=== PATIENT | female | born 1945 | race Hispanic/Latino ===

== ENCOUNTER 2019-02-16 16:37 | Inpatient (IN) | payer MEDICARE ==
[~2019-02-16] VITALS: Ht 165.1 cm; Wt 82.1 kg
[2019-02-16 17:48] LABS: CREATININE 3.4 mg/dL (0.5-1.5); POTASSIUM 4.9 mmol/L (3.5-5.1)
[2019-02-16 17:52] LABS: ALBUMIN 3.1 g/dL (3.5-5.0); BILIRUBIN,TOTAL 0.1 mg/dL (0.2-1.0); TOTAL PROTEIN, SERUM 6.6 g/dL (6.0-8.3)
[2019-02-16 17:57] LABS: INR 0.99 (0.85-1.15); PARTIAL THROMBOPLASTIN TIME 29.9 SEC (26.3-35.5); PROTHROMBIN TIME 10.4 SEC (9.6-11.6)
[2019-02-16 18:08] LABS: BASOPHILS % (AUTO) 0.6 % (0.0-5.0); EOSINOPHILS % (AUTO) 5.5 % (0.0-8.0); HEMATOCRIT 39.2 % (36-48); LYMPHOCYTES % (AUTO) 23.6 % (21.0-51.0); MEAN CORPUSCULAR HEMOGLOBIN 27.9 pg (27.0-33.0); MEAN CORPUSCULAR HGB CONC 31.8 g/dL (32.0-36.0); MEAN CORPUSCULAR VOLUME 87.5 fL (79-99); MONOCYTES % (AUTO) 9.5 % (3.0-13.0); NEUTROPHILS % (AUTO) 60.8 % (40.0-77.0); PLATELET COUNT (AUTO) 200 K/uL (130-400); RED BLOOD CELL COUNT(AUTO) 4.48 MIL/uL (4.00-5.50); RED CELL DISTRIBUTION WIDTH 17.3 % (11.0-15.5); WHITE BLOOD COUNT (AUTO) 8.1 K/uL (4.8-10.8)
[2019-02-16 18:09] LABS: ABG BASE EXCESS -17.3 mmol/L (-2.0-3.0); ABG OXYGEN SATURATION 75.4 % (95.0-99.0); ABG PCO2 48 mmHg (32-45)
[2019-02-16] MEDS ORDERED: SODIUM CHLORIDE 0.9% 1000ML 1,000 ML IV ONE (18:52)
[2019-02-16 18:54] LABS: APPEARANCE,URINE CLOUDY (CLEAR); BILIRUBIN,URINE NEGATIVE (NEGATIVE); COLOR,URINE YELLOW (YELLOW); GLUCOSE, URINE (UA) NEGATIVE (NEGATIVE); KETONES,URINE NEGATIVE (NEGATIVE); LEUKOCYTE ESTERASE ,URINE SMALL (NEGATIVE); NITRATE,URINE NEGATIVE (NEGATIVE); OCCULT BLOOD,URINE LARGE (NEGATIVE); PH,URINE 5.5 (5.0-8.0); PROTEIN,URINE 100 mg/dL (NEGATIVE); UROBILINOGEN,URINE 0.2 mg/dL (0.2-1.0)
[2019-02-16] MEDS ORDERED: SODIUM BICARB IVP SCH (19:15)
[2019-02-16] MEDS ORDERED: WATER IVP SCH (19:15)
[2019-02-16] MEDS ORDERED: DEXTROSE 5% IVP SCH (19:15)
[2019-02-16] MEDS ORDERED: VANCOMYCIN 1GM+NS 250ML 250 ML IV ONE (19:26)
[2019-02-16] MEDS ORDERED: ZOSYN 3.375GM+NS 50ML 50 ML IV ONE (19:26)
[2019-02-16 19:30] LABS: SALICYLATE 2.8 mg/dL (2.8-20.0)
[2019-02-16] MEDS ORDERED: GLUCAGON 1MG KIT 1 MG ML IM PRN (19:45)
[2019-02-16] MEDS ORDERED: DEXTROSE 50%-WATER 50 ML DISP.SYRIN IV PRN (19:45)
[2019-02-16 19:53] LABS: BACTERIA,URINE Moderate /HPF (None Seen)
[2019-02-16 19:54] LABS: SQUAMOUS EPITHELIAL CELL,UR Rare /HPF (0-2)
[2019-02-16 20:09] LABS: HEMOGLOBIN A1C 8.6 % (4.0-6.0)
[2019-02-16] MEDS ORDERED: NITROGLYCERIN 0.4 MG SL TAB SL PRN (20:45)
[2019-02-16] MEDS ORDERED: HYDROCODONE/ACETAMINOPHEN 5/325 MG TAB PO PRN (20:45)
[2019-02-16] MEDS: SODIUM BICARB 150 MEQ in DEXTROSE 5%-WATER 1,000 ML IV SCH (20:45)
[2019-02-16] MEDS ORDERED: ONDANSETRON HCL 4 MG/2 ML VIAL IV PRN (20:45)
[2019-02-16] MEDS ORDERED: VANCOMYCIN PROTOCOL PER PHARMACY IV SCH (20:45)
[2019-02-16] MEDS ORDERED: ACETAMINOPHEN 325 MG TAB PO PRN (20:45)
[2019-02-16] MEDS: INSULIN HUMULIN R 100 UNIT/ML 3ML SQ SCH (21:00)
[2019-02-16 22:12] VITALS: BP 104/37
[2019-02-16] MEDS: FAMOTIDINE 20MG TAB 20 MG TAB PO SCH (22:17)
[2019-02-17] MEDS ORDERED: ZOSYN 3.375GM+NS 50ML 50 ML IV ONE (02:13)
[2019-02-17 03:45] LABS: HEMATOCRIT 39.4 % (36-48); MEAN CORPUSCULAR HEMOGLOBIN 28.5 pg (27.0-33.0); NUCLEATED RED BLOOD CELLS 0.5 % (0.0-0.19); PLATELET COUNT (AUTO) 164 K/uL (130-400); RED BLOOD CELL COUNT(AUTO) 4.43 MIL/uL (4.00-5.50); RED CELL DISTRIBUTION WIDTH 17.2 % (11.0-15.5); WHITE BLOOD COUNT (AUTO) 7.4 K/uL (4.8-10.8)
[2019-02-17] MEDS ORDERED: ZOSYN 3.375GM+NS 50ML 50 ML IV SCH ×2 (04:00→13:00)
[2019-02-17 04:17] LABS: ALBUMIN 2.9 g/dL (3.5-5.0); BILIRUBIN,TOTAL 0.1 mg/dL (0.2-1.0); CREATININE 3.4 mg/dL (0.5-1.5); POTASSIUM 4.6 mmol/L (3.5-5.1); TOTAL PROTEIN, SERUM 6.3 g/dL (6.0-8.3)
[2019-02-17 04:33] VITALS: BP 116/64
[2019-02-17 05:17] LABS: ABG BASE EXCESS -17.6 mmol/L (-2.0-3.0); ABG OXYGEN SATURATION 86.5 % (95.0-99.0); ABG PCO2 49 mmHg (32-45)
[2019-02-17] MEDS: INSULIN HUMULIN R 100 UNIT/ML 3ML SQ SCH ×4 (06:21→21:27)
[2019-02-17 07:00] VITALS: BP 107/48
[2019-02-17] MEDS ORDERED: PANT40TA25 PO (07:38)
[2019-02-17] MEDS ORDERED: AMLO5TAB9 PO (07:38)
[2019-02-17] MEDS ORDERED: FOLI1TAB15 PO (07:38)
[2019-02-17] MEDS ORDERED: METO-408 PO (07:38)
[2019-02-17] MEDS ORDERED: POTA10CA44 PO (07:38)
[2019-02-17] MEDS ORDERED: GABA-531 PO (07:38)
[2019-02-17] MEDS ORDERED: ATOR40TA69 PO (07:38)
[2019-02-17] MEDS ORDERED: GABA-529 PO (07:38)
[2019-02-17] MEDS ORDERED: FERR325T22 PO (07:38)
[2019-02-17 11:00] VITALS: BP 145/74
[2019-02-17] MEDS ORDERED: ENOXAPARIN SODIUM 30 MG/0.3 ML SQ ONE (12:46)
[2019-02-17] MEDS: FAMOTIDINE 20MG TAB 20 MG TAB PO SCH ×2 (12:48→20:03)
[2019-02-17] MEDS: ENOXAPARIN SODIUM 30 MG/0.3 ML SQ SCH (12:49)
[2019-02-17] MEDS: SODIUM BICARB 150 MEQ in DEXTROSE 5%-WATER 1,000 ML IV SCH (12:56)
[2019-02-17] MEDS ORDERED: SODIUM BICARBONATE 650 MG TAB PO SCH (13:20)
--- NOTE | 2019-02-17 13:27 | NUR ---
DC PLAN VISITED WITH PATIENT. PATIENT LIVES ALONE. INDEPENDENT ABLE TO PERFORM ADL'S. PATIENT HAS 24 HRS CARE. SPOUSE RECENTLY . PATIENT HAS WALKER. PENDING DR. SARABIA. Addendum: 02/17/19 at 1329 by ASTRID CORNEJO RN CM Amended: Links added.
[2019-02-17 16:00] VITALS: BP 114/49
[2019-02-17] MEDS: ZOSYN 3.375GM+NS 50ML 50 ML IV SCH (20:03)
[2019-02-17] MEDS: SODIUM BICARBONATE 650 MG TAB PO SCH (20:04)
[2019-02-17 20:09] VITALS: BP 139/79
[2019-02-17] MEDS: HYDROCODONE/ACETAMINOPHEN 5/325 MG TAB PO PRN (20:15)
[2019-02-18] VITALS (27 sets, daily range): BP systolic 70–192; BP diastolic 35–110
--- NOTE | 2019-02-18 | NUR ---
Pt. kept NPO at this time, private caregiver instructed that pt is NPO and demonstrated understanding.
[2019-02-18] MEDS: SODIUM BICARB 150 MEQ in DEXTROSE 5%-WATER 1,000 ML IV SCH ×2 (03:25→08:12)
[2019-02-18 03:40] LABS: HEMATOCRIT 36.4 % (36-48); MEAN CORPUSCULAR HEMOGLOBIN 28.2 pg (27.0-33.0); MEAN CORPUSCULAR HGB CONC 32.3 g/dL (32.0-36.0); MEAN CORPUSCULAR VOLUME 87.1 fL (79-99); NUCLEATED RED BLOOD CELLS 0.7 % (0.0-0.19); PLATELET COUNT (AUTO) 149 K/uL (130-400); RED BLOOD CELL COUNT(AUTO) 4.18 MIL/uL (4.00-5.50); RED CELL DISTRIBUTION WIDTH 17.2 % (11.0-15.5); WHITE BLOOD COUNT (AUTO) 8.1 K/uL (4.8-10.8)
[2019-02-18 03:51] LABS: CREATININE 3.6 mg/dL (0.5-1.5); PHOSPHORUS 5.2 mg/dL (2.5-4.9); POTASSIUM 4.4 mmol/L (3.5-5.1)
[2019-02-18 04:14] LABS: BASOPHILS % (MANUAL) 1 % (0-2); EOSINOPHILS % (MANUAL) 4 % (1-6); LYMPHOCYTES % (MANUAL) 23 % (22-44); MAN.DIFF COMMENT-IMPRESSION MANUAL DIFFERENTIAL; MONOCYTES % (MANUAL) 10 % (2-9); SEGMENTED NEUTROPHILS % 62 % (40-70)
[2019-02-18] MEDS: INSULIN HUMULIN R 100 UNIT/ML 3ML SQ SCH ×4 (05:59→21:00)
--- NOTE | 2019-02-18 07:34 | NUR ---
TELEPHONE CONSENT OBTAINED FROM SON WITNESSED AND VERIFIED WITH ANOTHER RN DAMASO JONES.PT. REAMINED STABLE,ON NPO.BEDSIDE REPORT GIVEN.
--- NOTE | 2019-02-18 08:00 | NUR ---
AM ASSESSMENT PT LAYING IN BED, RESTING. PROVIDER @ BEDSIDE. ORIENTED TO SELF. FORGETFUL. FOLLOWS COMMANDS. NO SOB. NO DISTRESS NOTED. 02 NC @ 3L. NO CHEST PAIN, NO DISCOMFORT. TELE: SR 60s. NO N/V. N/ DIARRHEA. ROUND DISTENDED ABD; MD TO BE NOTIFIED. NPO STATUS REINFORCED. OLIGURIA. NaHCO3 INFUSING @ 75 ML/HR. BEDREST. INSTRUCTED TO CALL FOR ASSISTANCE. CALL EMIR W/IN REACH.
[2019-02-18] MEDS: ZOSYN 3.375GM+NS 50ML 50 ML IV SCH ×2 (08:12→20:47)
[2019-02-18] MEDS: FAMOTIDINE 20MG TAB 20 MG TAB PO SCH ×2 (09:00→20:46)
[2019-02-18] MEDS: ENOXAPARIN SODIUM 30 MG/0.3 ML SQ SCH (09:00)
[2019-02-18] MEDS: SODIUM BICARBONATE 650 MG TAB PO SCH ×2 (09:00→20:46)
[2019-02-18] MEDS ORDERED: SODIUM CHLORIDE 0.9% 1000ML 1,000 ML IV ONE (10:34)
--- NOTE | 2019-02-18 10:35 | NUR ---
STATUS PT TAKEN TO HOLDING AREA VIA BED, ACCOMPANIED BY FAMILY. PT TO HAVE LT BREAST ABSCESS I & D.
--- NOTE | 2019-02-18 10:40 | NUR ---
MD VISIT DR SIGIFREDO LUU. UPDATED ON PT'S STATUS & PLAN OF CARE REVIEWED. NEW ORDERS RECEIVED. NURSE & HOLDING AREA NOTIFIED OF NEW ORDERS.
[2019-02-18] MEDS ORDERED: LIDOCAINE PF 2% 5ML ABBOJECT ONE (11:15)
[2019-02-18 11:16] LABS: ABG BASE EXCESS -12.1 mmol/L (-2.0-3.0); ABG HCO3 18.3 mmol/L (21.0-28.0); ABG PCO2 63 mmHg (32-45)
[2019-02-18] MEDS ORDERED: PROPOFOL 10 MG/ML 20ML VIAL IV ONE (11:16)
[2019-02-18] MEDS ORDERED: ROCURONIUM 10MG/1ML SYR 10 MG/ML ML ONE (11:30)
[2019-02-18] MEDS ORDERED: SUCCINYLCHOLINE 200MG/10ML SYR ONE (11:30)
[2019-02-18] MEDS ORDERED: GLYCOPYRROLATE 1 MG/5 ML SYRINGE ONE (11:46)
[2019-02-18] MEDS ORDERED: ONDANSETRON HCL 4 MG/2 ML VIAL IVP PRN (12:00)
[2019-02-18] MEDS ORDERED: MIDAZOLAM HCL 1 MG/ML 2ML VIAL ONE (12:07)
--- NOTE | 2019-02-18 12:10 | NUR ---
RECEIVED PT FROM OR VIA BED AND VENTED. S/P I&D OF RIGHT BREAST CYST. PLACED ON SCIENCE JOB TITLES. ZEROED IN LEFT RADIAL ARTERIAL LINE. REPOSITIONED FOR COMFORT. COMPLETE ASSESSMENT DOCUMENTED.
[2019-02-18] MEDS ORDERED: PROPOFOL 1000 MG/100 ML IV SCH (13:45)
[2019-02-18] MEDS ORDERED: NOREPINEPHRINE 4MG/NS 250ML 250 ML IV SCH (13:45)
--- NOTE | 2019-02-18 13:45 | NUR ---
Anna FRIEDMAN NP IN TO SEE PATIENT, UPDATE GIVEN.
[2019-02-18] MEDS: SODIUM CHLORIDE 0.9% 1000ML 1,000 ML IV SCH (13:48)
[2019-02-18] MEDS ORDERED: PROPOFOL 1000 MG/100 ML 100 ML IV PRN (16:00)
[2019-02-18] MEDS ORDERED: VANCOMYCIN 1GM+NS 250ML 250 ML IV SCH (19:00)
[2019-02-19] VITALS (37 sets, daily range): BP systolic 91–179; BP diastolic 40–106
[2019-02-19] MEDS: SODIUM CHLORIDE 0.9% 1000ML 1,000 ML IV SCH (01:17)
[2019-02-19 03:38] LABS: ABG BASE EXCESS -1.6 mmol/L (-2.0-3.0); ABG OXYGEN SATURATION 98.6 % (95.0-99.0); ABG PCO2 23 mmHg (32-45)
[2019-02-19 04:01] LABS: HEMATOCRIT 31.8 % (36-48); MEAN CORPUSCULAR HGB CONC 34.7 g/dL (32.0-36.0); MEAN CORPUSCULAR VOLUME 83.6 fL (79-99); NUCLEATED RED BLOOD CELLS 0.8 % (0.0-0.19); PLATELET COUNT (AUTO) 109 K/uL (130-400); RED BLOOD CELL COUNT(AUTO) 3.81 MIL/uL (4.00-5.50); RED CELL DISTRIBUTION WIDTH 16.3 % (11.0-15.5); WHITE BLOOD COUNT (AUTO) 5.8 K/uL (4.8-10.8)
[2019-02-19 04:08] LABS: CREATININE 3.5 mg/dL (0.5-1.5); PHOSPHORUS 2.8 mg/dL (2.5-4.9)
[2019-02-19 04:10] LABS: POTASSIUM 2.9 mmol/L (3.5-5.1)
[2019-02-19 04:27] LABS: BAND NEUTROPHILS % (MANUAL) 1 % (0-2); EOSINOPHILS % (MANUAL) 1 % (1-6); LYMPHOCYTES % (MANUAL) 31 % (22-44); MAN.DIFF COMMENT-IMPRESSION MANUAL DIFFERENTIAL; MONOCYTES % (MANUAL) 4 % (2-9); SEGMENTED NEUTROPHILS % 63 % (40-70)
[2019-02-19] MEDS: POTASSIUM CHLORIDE 20 MEQ/100 ML BAG IV SCH (05:00)
[2019-02-19] MEDS ORDERED: POTASSIUM CHLORIDE 20MEQ/100ML 100 ML IV ONE (05:01)
[2019-02-19] MEDS: SODIUM BICARB 150 MEQ in DEXTROSE 5%-WATER 1,000 ML IV SCH ×2 (05:07→21:25)
[2019-02-19] MEDS: INSULIN HUMULIN R 100 UNIT/ML 3ML SQ SCH ×4 (07:27→20:52)
[2019-02-19] MEDS: ZOSYN 3.375GM+NS 50ML 50 ML IV SCH ×2 (08:43→20:12)
[2019-02-19] MEDS: HYDRALAZINE HCL 20 MG/ML VIAL IV PRN (08:58)
[2019-02-19] MEDS ORDERED: POTASSIUM CHLORIDE 10MEQ/100ML 10 MEQ/100 ML ML IV SCH (09:00)
[2019-02-19] MEDS: SODIUM BICARBONATE 650 MG TAB PO SCH ×2 (09:00→20:08)
[2019-02-19] MEDS ORDERED: POTASSIUM CHLORIDE 20MEQ/100ML 100 ML IV SCH (09:00)
[2019-02-19] MEDS: FAMOTIDINE 20MG TAB 20 MG TAB PO SCH ×2 (09:00→20:08)
[2019-02-19] MEDS ORDERED: NICARDIPINE HCL 100 MG in SODIUM CHLORIDE 0.9% 60 ML IV PRN (09:30)
--- NOTE | 2019-02-19 12:00 | NUR ---
PATIENT EXTUBATED AND PLACED ON COOL AEROSOL MASK. NO SIGNS OF DISTRESS NOTED
[2019-02-19] MEDS: ENOXAPARIN SODIUM 30 MG/0.3 ML SQ SCH (12:21)
[2019-02-19] MEDS ORDERED: FUROSEMIDE 10 MG/ML 4ML VIAL IV SCH (15:00)
[2019-02-19] MEDS: HYDROCODONE/ACETAMINOPHEN 5/325 MG TAB PO PRN (15:52)
[2019-02-19] MEDS ORDERED: POTASSIUM CHLORIDE 20 MEQ/100 ML BAG IV SCH ×2 (16:15→19:00)
--- NOTE | 2019-02-19 22:00 | NUR ---
TRANSFER PATIENT TRANSFERRED TO ROOM 210 FROM ROOM 215 VIA BED.
[2019-02-20] VITALS (15 sets, daily range): BP systolic 98–160; BP diastolic 44–71
--- NOTE | 2019-02-20 02:45 | NUR ---
BOWEL MOVEMNT PATIENT HAD LARGE SOFT DARK GREEN BOWEL MOVEMENT. BATHED WITH CHG WIPES AND REPOSITIONED FOR COMFORT
--- NOTE | 2019-02-20 03:00 | NUR ---
PIV PERIPHERAL IV TO RIGHT HAND DISCONTINUED BY PATIENT. INSERTED NEW 22G ATTEMPT X1. SLUGGISH BLOOD RETURN. PATENT.
[2019-02-20 03:47] LABS: BASOPHILS % (AUTO) 0.6 % (0.0-5.0); EOSINOPHILS % (AUTO) 6.3 % (0.0-8.0); HEMATOCRIT 31.8 % (36-48); LYMPHOCYTES % (AUTO) 22.1 % (21.0-51.0); MEAN CORPUSCULAR HEMOGLOBIN 27.8 pg (27.0-33.0); MEAN CORPUSCULAR HGB CONC 33.2 g/dL (32.0-36.0); MEAN CORPUSCULAR VOLUME 83.9 fL (79-99); MONOCYTES % (AUTO) 12.7 % (3.0-13.0); NEUTROPHILS % (AUTO) 58.3 % (40.0-77.0); PLATELET COUNT (AUTO) 106 K/uL (130-400); RED CELL DISTRIBUTION WIDTH 17.4 % (11.0-15.5); WHITE BLOOD COUNT (AUTO) 6.7 K/uL (4.8-10.8)
[2019-02-20 03:58] LABS: CREATININE 2.9 mg/dL (0.5-1.5); MAGNESIUM 1.5 mg/dL (1.80-2.40); PHOSPHORUS 3.3 mg/dL (2.5-4.9); POTASSIUM 3.1 mmol/L (3.5-5.1)
[2019-02-20] MEDS: POTASSIUM CHLORIDE 20 MEQ/100 ML BAG IV SCH ×2 (04:51→19:42)
--- NOTE | 2019-02-20 04:56 | NUR ---
POTASSIUM/MAGNESIUM PATIENT POTASSIUM 3.1. MAGNESIUM 1.5. CALLED HOSPITALIST TRACTOR TRAILER OPERATOR TO NOTIFY OF ELECTROLYTES. PROVIDED BUN 50/CREATININE 2.9. ORDERS RECEIVED TO REPLACE PER PROTOCOL
[2019-02-20] MEDS ORDERED: POTASSIUM CHLORIDE 20 MEQ ERTAB PO PRN (05:00)
[2019-02-20] MEDS ORDERED: MAGNESIUM 2GM PREMIX 50ML 50 ML IV PRN (05:00)
[2019-02-20] MEDS ORDERED: POTASSIUM CHLORIDE 20MEQ/100ML 100 ML IV PRN (05:00)
[2019-02-20] MEDS ORDERED: LIDOCAINE HCL-MPF 1% 2ML VIAL IVP PRN (05:00)
[2019-02-20] MEDS: INSULIN HUMULIN R 100 UNIT/ML 3ML SQ SCH ×4 (06:22→22:12)
--- NOTE | 2019-02-20 08:30 | NUR ---
MD ROUNDS DR. FUENTES RIOS IN TO SEE PATIENT. NEW ORDERS RECEIVED TO BE CARRIED OUT. PER MD, PATIENT MAY TRANSFER OUT TO PCCU. INSTRUCTIONS TO COVER POTASSIUM WITH ANOTHER 20MEQ IV FOR A TOTAL OF 40 MEQ POTASSIUM.
[2019-02-20] MEDS: SODIUM BICARBONATE 650 MG TAB PO SCH ×2 (09:03→20:26)
[2019-02-20] MEDS: LEVOFLOXACIN 500 MG TABLET PO SCH (09:03)
[2019-02-20] MEDS: FAMOTIDINE 20MG TAB 20 MG TAB PO SCH ×2 (09:03→20:24)
[2019-02-20] MEDS: ENOXAPARIN SODIUM 30 MG/0.3 ML SQ SCH (09:05)
--- NOTE | 2019-02-20 12:20 | NUR ---
MD ROUNDS DR. DEL RIO IN TO SEE PATIENT. NEW ORDERS RECEIVED TO BE CARRIED OUT.
--- NOTE | 2019-02-20 13:00 | NUR ---
A-LINE TO LEFT WRIST REMOVED WITH CATHETER INTACT. NO COMPLICATIONS NOTED. PRESSURE APPLIED PER [facility] PROTOCOL. AREA DRESSED WITH 4X4 AND SECURED WITH TAPE.
--- NOTE | 2019-02-20 15:10 | NUR ---
F/C REMOVED WITHOUT COMPLICATIONS. PT IS D/T VOID BY 0.
[2019-02-20] MEDS: HYDROCODONE/ACETAMINOPHEN 5/325 MG TAB PO PRN ×2 (15:11→22:55)
--- NOTE | 2019-02-20 15:50 | NUR ---
PATIENT WITH A LARGE GREEN WATERY BM. WILL MONITOR FOR POSSIBLE DIARRHEA.
[2019-02-20] MEDS: ACETAMINOPHEN 325 MG TAB PO PRN (16:47)
[2019-02-21 02:02] VITALS: BP 152/68
[2019-02-21 03:53] VITALS: BP 154/70
[2019-02-21 04:25] LABS: MAGNESIUM 2.2 mg/dL (1.80-2.40)
[2019-02-21] MEDS: POTASSIUM CHLORIDE 10% ELIXIR 20 MEQ/15 ML UDCUP PO PRN ×2 (05:34→07:57)
[2019-02-21] MEDS: INSULIN HUMULIN R 100 UNIT/ML 3ML SQ SCH ×4 (06:08→21:00)
--- NOTE | 2019-02-21 06:09 | NUR ---
HOME MEDICATION PATIENT WAS GIVEN PINK [place] ORAL SOLUTION BY PROVIDER. INFORMED THAT PATIENT SHOULD ONLY BE TAKING PRESCRIBED MEDICATIONS AT THIS TIME. PROVIDER ACKNOWLEDGED
[2019-02-21] MEDS: SODIUM BICARBONATE 650 MG TAB PO SCH ×2 (07:57→20:32)
[2019-02-21] MEDS: FAMOTIDINE 20MG TAB 20 MG TAB PO SCH ×2 (07:57→20:32)
[2019-02-21] MEDS: ENOXAPARIN SODIUM 30 MG/0.3 ML SQ SCH (07:57)
[2019-02-21 08:13] VITALS: BP 154/81
[2019-02-21 08:31] LABS: BASOPHILS % (AUTO) 0.6 % (0.0-5.0); EOSINOPHILS % (AUTO) 10.2 % (0.0-8.0); HEMATOCRIT 35.3 % (36-48); LYMPHOCYTES % (AUTO) 19.1 % (21.0-51.0); MEAN CORPUSCULAR HEMOGLOBIN 28.1 pg (27.0-33.0); MEAN CORPUSCULAR HGB CONC 32.6 g/dL (32.0-36.0); MONOCYTES % (AUTO) 12.8 % (3.0-13.0); NEUTROPHILS % (AUTO) 57.3 % (40.0-77.0); NUCLEATED RED BLOOD CELLS 0.1 % (0.0-0.19); PLATELET COUNT (AUTO) 112 K/uL (130-400); RED BLOOD CELL COUNT(AUTO) 4.11 MIL/uL (4.00-5.50); RED CELL DISTRIBUTION WIDTH 17.5 % (11.0-15.5)
[2019-02-21 08:35] LABS: ALBUMIN 2.5 g/dL (3.5-5.0); CREATININE 2.1 mg/dL (0.5-1.5); POTASSIUM 3.4 mmol/L (3.5-5.1)
--- NOTE | 2019-02-21 10:06 | NUR ---
PHYSICAL THERAPY IN PROGRESS AT THIS TIME.
[2019-02-21 11:55] VITALS: BP 169/84
[2019-02-21 16:00] VITALS: BP 158/84
--- NOTE | 2019-02-21 17:00 | NUR ---
PATIENT RECEIVED FROM ICU NAKIA NURSE, PATIENT IN NO PAIN, LUNGS CLEAR, NO SOB, DENIES ANY DISTRESS, AAOX3. IV INTACT PATENT. PATIENT SCRATCH RIGHT FOREARM BLEEDING BAND AID APPLIED. NO OTHER DISTRESS.
[2019-02-21 20:00] VITALS: BP 175/60
[2019-02-21] MEDS: POTASSIUM CHLORIDE 20 MEQ/100 ML BAG IV SCH (20:05)
[2019-02-22] VITALS: BP 178/57
[2019-02-22 04:00] VITALS: BP 179/81
[2019-02-22 04:52] LABS: CREATININE 1.6 mg/dL (0.5-1.5); POTASSIUM 3.3 mmol/L (3.5-5.1)
[2019-02-22 04:55] LABS: BASOPHILS % (AUTO) 0.7 % (0.0-5.0); EOSINOPHILS % (AUTO) 7.8 % (0.0-8.0); LYMPHOCYTES % (AUTO) 19.7 % (21.0-51.0); MEAN CORPUSCULAR HEMOGLOBIN 27.7 pg (27.0-33.0); MEAN CORPUSCULAR HGB CONC 32.5 g/dL (32.0-36.0); MEAN CORPUSCULAR VOLUME 85.2 fL (79-99); MONOCYTES % (AUTO) 11.6 % (3.0-13.0); NEUTROPHILS % (AUTO) 60.2 % (40.0-77.0); NUCLEATED RED BLOOD CELLS 0.1 % (0.0-0.19); PLATELET COUNT (AUTO) 118 K/uL (130-400); RED BLOOD CELL COUNT(AUTO) 4.23 MIL/uL (4.00-5.50); RED CELL DISTRIBUTION WIDTH 17.6 % (11.0-15.5); WHITE BLOOD COUNT (AUTO) 6.6 K/uL (4.8-10.8)
[2019-02-22] MEDS: INSULIN HUMULIN R 100 UNIT/ML 3ML SQ SCH ×4 (07:30→21:51)
[2019-02-22] MEDS: SODIUM BICARBONATE 650 MG TAB PO SCH ×2 (09:06→21:25)
[2019-02-22] MEDS: FAMOTIDINE 20MG TAB 20 MG TAB PO SCH ×2 (09:06→21:25)
[2019-02-22] MEDS: LEVOFLOXACIN 500 MG TABLET PO SCH (09:06)
[2019-02-22] MEDS: AMLODIPINE BESYLATE 5 MG TAB PO SCH (09:06)
[2019-02-22] MEDS: ENOXAPARIN SODIUM 30 MG/0.3 ML SQ SCH (09:08)
[2019-02-22] MEDS: HYDRALAZINE HCL 20 MG/ML VIAL IV PRN (09:09)
[2019-02-22 09:29] VITALS: BP 195/98
[2019-02-22] MEDS ORDERED: NITROGLYCERIN 0.4 MG SL TAB SL PRN (10:30)
[2019-02-22 11:11] LABS: TROPONIN I 0.06 ng/mL (0.00-0.06)
[2019-02-22] MEDS: ALPRAZOLAM 0.25 MG TABLET PO PRN ×2 (11:14→21:24)
--- NOTE | 2019-02-22 11:30 | NUR ---
PATIENT COMPLAINING OF CHEST PAIN, SILK SCREEN PRINTER HELPER BEATRIZ AWARE; ORDERS ENTERED, DR BARAHONA AWARE WILL SEE PATIENT TONIGHT. ORDERS ENTERED. PATIENT REQUESTING ANXIETY MEDICATIONS WHICH WAS GIVEN AND NOW APPEARS TO BE CALM AND ASLEEP DENYING ANY CHEST PAIN. 02 SATS 94 ON 2 L.
[2019-02-22 11:58] VITALS: BP 139/57
[2019-02-22] MEDS: IPRATROPIUM 0.5 MG/2.5 ML INH IH SCH ×3 (12:02→23:15)
[2019-02-22 12:11] LABS: ABG BASE EXCESS 4.5 mmol/L (-2.0-3.0); ABG HCO3 28.7 mmol/L (21.0-28.0); ABG PCO2 41 mmHg (32-45)
[2019-02-22] MEDS: MORPHINE SULFATE 2 MG/ML 1ML SYG IVP PRN ×2 (14:30→21:39)
[2019-02-22 16:00] VITALS: BP 155/58
--- NOTE | 2019-02-22 16:01 | NUR ---
PT REFUSING VQ SCAN, AND CHEST XRAY. ZARA GUERRA.
[2019-02-22 17:06] LABS: TROPONIN I 0.06 ng/mL (0.00-0.06)
[2019-02-22 19:00] VITALS: BP 164/66
[2019-02-22] MEDS: POTASSIUM CHLORIDE 20 MEQ/100 ML BAG IV SCH (19:57)
[2019-02-22] MEDS ORDERED: GABAPENTIN 300 MG CAPSULE PO SCH (21:00)
[2019-02-22] MEDS: ATORVASTATIN CALCIUM 40 MG TABLET PO SCH (21:24)
[2019-02-22] MEDS: METOPROLOL TARTRATE 25 MG TAB PO SCH (21:25)
[2019-02-22 23:20] LABS: TROPONIN I 0.05 ng/mL (0.00-0.06)
[2019-02-23 05:50] LABS: BASOPHILS % (AUTO) 0.4 % (0.0-5.0); EOSINOPHILS % (AUTO) 8.8 % (0.0-8.0); HEMATOCRIT 34.8 % (36-48); MEAN CORPUSCULAR HEMOGLOBIN 28.5 pg (27.0-33.0); MEAN CORPUSCULAR HGB CONC 33.2 g/dL (32.0-36.0); MEAN CORPUSCULAR VOLUME 85.6 fL (79-99); MONOCYTES % (AUTO) 14.7 % (3.0-13.0); NEUTROPHILS % (AUTO) 51.1 % (40.0-77.0); NUCLEATED RED BLOOD CELLS 0.2 % (0.0-0.19); PLATELET COUNT (AUTO) 114 K/uL (130-400); RED BLOOD CELL COUNT(AUTO) 4.07 MIL/uL (4.00-5.50); WHITE BLOOD COUNT (AUTO) 5.5 K/uL (4.8-10.8)
[2019-02-23 05:59] LABS: ALBUMIN 2.4 g/dL (3.5-5.0); BILIRUBIN,TOTAL 0.4 mg/dL (0.2-1.0); CREATININE 1.3 mg/dL (0.5-1.5); MAGNESIUM 1.8 mg/dL (1.80-2.40); PHOSPHORUS 3.2 mg/dL (2.5-4.9); POTASSIUM 3.1 mmol/L (3.5-5.1); TOTAL PROTEIN, SERUM 6.3 g/dL (6.0-8.3)
[2019-02-23 06:05] LABS: INR 1.03 (0.85-1.15); PROTHROMBIN TIME 10.8 SEC (9.6-11.6)
[2019-02-23 06:11] LABS: B-TYPE NATRIURETIC PEPTIDE 1490 pg/mL (0-100)
[2019-02-23] MEDS: IPRATROPIUM 0.5 MG/2.5 ML INH IH SCH ×4 (06:35→23:10)
[2019-02-23 07:14] LABS: ABG BASE EXCESS 5.7 mmol/L (-2.0-3.0); ABG HCO3 32.3 mmol/L (21.0-28.0); ABG OXYGEN SATURATION 93.4 % (95.0-99.0); ABG PCO2 55 mmHg (32-45)
[2019-02-23] MEDS: INSULIN HUMULIN R 100 UNIT/ML 3ML SQ SCH ×4 (07:30→21:00)
[2019-02-23 08:00] VITALS: BP 174/83
[2019-02-23 08:31] LABS: APPEARANCE,URINE Clear (CLEAR); BILIRUBIN,URINE Negative (NEGATIVE); COLOR,URINE Yellow (YELLOW); GLUCOSE, URINE (UA) Negative (NEGATIVE); KETONES,URINE Trace mg/dL (NEGATIVE); LEUKOCYTE ESTERASE ,URINE Negative (NEGATIVE); NITRATE,URINE Negative (NEGATIVE); OCCULT BLOOD,URINE Small (NEGATIVE); PH,URINE 6.5 (5.0-8.0); PROTEIN,URINE 300 mg/dL (NEGATIVE); UROBILINOGEN,URINE 0.2 mg/dL (0.2-1.0)
[2019-02-23] MEDS ORDERED: POTASSIUM CHLORIDE 20 MEQ ERTAB PO SCH (09:00)
[2019-02-23] MEDS ORDERED: GABAPENTIN 100 MG CAPSULE PO SCH (09:00)
[2019-02-23 09:09] LABS: BACTERIA,URINE Few /HPF (None Seen); SQUAMOUS EPITHELIAL CELL,UR Few /HPF (0-2)
[2019-02-23] MEDS: ASPIRIN 81MG TAB.CHEW PO SCH (10:42)
[2019-02-23] MEDS: FERROUS SULFATE 325 MG TABLET.DR PO SCH (10:42)
[2019-02-23] MEDS: CHLORDIAZEPOXIDE HCL 25 MG CAP PO SCH (10:43)
[2019-02-23] MEDS: FOLIC ACID 1 MG TABLET PO SCH (10:43)
[2019-02-23] MEDS: METOPROLOL TARTRATE 25 MG TAB PO SCH ×2 (10:45→22:07)
[2019-02-23] MEDS: AMLODIPINE BESYLATE 5 MG TAB PO SCH (10:46)
[2019-02-23] MEDS: PANTOPRAZOLE SODIUM 40 MG TABLET.DR PO SCH (10:46)
[2019-02-23] MEDS: SODIUM BICARBONATE 650 MG TAB PO SCH ×2 (10:46→22:07)
[2019-02-23] MEDS: POTASSIUM CHLORIDE 10% ELIXIR 20 MEQ/15 ML UDCUP PO SCH ×3 (11:15→22:08)
[2019-02-23 11:30] VITALS: BP 176/80
--- NOTE | 2019-02-23 13:16 | NUR ---
PATIENT IS VERY LETHARGIC, ON BREATING TREATMENT WITH FAMILY PRESENT. PATIENT ABLE OPEN EYES AND FOLLOW COMMANDS FOR SHORT PERIODS OF TIME. AAROM COMPLETED WITH SEVERAL BREAKS. PATIENT NEEDS CUES TO ATTEND TO TASK. PATIENT GIVEN MEAL SET UP AND FAMILY ASSISTS WITH FEEDING. Addendum: 02/23/19 at 1318 by JUAN ELAINE, PT PT Amended: Links added.
--- NOTE | 2019-02-23 14:45 | NUR ---
Notified Dr. Cardenas pt's lethargy and being unable to do physical therapy due lethargy, as well as unable to administer 1100 dose of potassium 40 meq's. Also clarified if lovenox should be given due to today's plt of 114. Orders entered and carried out. Addendum: 02/23/19 at 1754 by REDD VERDUGO RN RN Clarification: pt is lethargic but wakes to light touch. Is able to follow very simple commands. Falls quickly asleep.
--- NOTE | 2019-02-23 15:00 | NUR ---
SNF In to speak w pt and family regarding Md order/recommendation for SNF @ dc. Pt very sleepy unable to arouse. Per son he will need to discuss w pt prior to making any determination. Provided Nura James (son) w list of local SNFs. CM to f/u.
--- NOTE | 2019-02-23 15:11 | NUR ---
Reported lethargy to Dr. Sanchez. Rec'd order to stop xanax and hold gabapentin.
[2019-02-23 16:00] VITALS: BP 141/72
[2019-02-23] MEDS: ENOXAPARIN SODIUM 30 MG/0.3 ML SQ SCH (17:02)
[2019-02-23] MEDS ORDERED: PHARMACY COMMUNICATION MISC PRN (19:15)
[2019-02-23] MEDS ORDERED: CHLORDIAZEPOXIDE HCL 25 MG CAP PO PRN (19:15)
[2019-02-23] MEDS ORDERED: LORAZEPAM 2 MG/ML 1 ML VIAL IVP PRN (19:15)
[2019-02-23] MEDS: POTASSIUM CHLORIDE 20 MEQ/100 ML BAG IV SCH (19:53)
[2019-02-23 21:34] VITALS: BP 139/70
[2019-02-23] MEDS: ATORVASTATIN CALCIUM 40 MG TABLET PO SCH (22:05)
[2019-02-23 23:00] VITALS: BP 151/97
[2019-02-24 03:00] VITALS: BP 140/78
[2019-02-24] MEDS: IPRATROPIUM 0.5 MG/2.5 ML INH IH SCH ×4 (06:29→23:18)
[2019-02-24] MEDS: INSULIN HUMULIN R 100 UNIT/ML 3ML SQ SCH ×4 (07:30→20:42)
[2019-02-24 08:00] VITALS: BP 182/84
[2019-02-24] MEDS: FOLIC ACID 1 MG TABLET PO SCH (09:14)
[2019-02-24] MEDS: SODIUM BICARBONATE 650 MG TAB PO SCH ×2 (09:17→20:39)
[2019-02-24] MEDS: METOPROLOL TARTRATE 25 MG TAB PO SCH ×2 (09:17→20:39)
[2019-02-24] MEDS: ASPIRIN 81MG TAB.CHEW PO SCH (09:17)
[2019-02-24] MEDS: PANTOPRAZOLE SODIUM 40 MG TABLET.DR PO SCH (09:17)
[2019-02-24] MEDS: ENOXAPARIN SODIUM 30 MG/0.3 ML SQ SCH (09:18)
[2019-02-24] MEDS: CHLORDIAZEPOXIDE HCL 25 MG CAP PO SCH (09:18)
[2019-02-24] MEDS: AMLODIPINE BESYLATE 5 MG TAB PO SCH (09:18)
[2019-02-24] MEDS: FERROUS SULFATE 325 MG TABLET.DR PO SCH (09:18)
--- NOTE | 2019-02-24 10:00 | NUR ---
cm note met with patient and with son Nura , informed pt of orders for snf level of care, pt states she prefers to return ye home at time of dc has 24hr cg, informed her that she is very weak, and requires further rehab than she can receive at home, and that is why Md ordered snf. pt refusing snf level of care unless she can go to home first for at least 3 days, and then go to the facililty, son discussed [facility] as a possiblity for option, and pt agreeable to going only if she can go home first, also had discussion with son Nura Jacob [phone] and Adrian groves DIRECTOR OF RECREATION THERAPY, regarding dc plan, per Adrian groves states does not feel that pt is able to make her own decisions, mental capacity in questions. states will order a psyche consult for assistance.
[2019-02-24] MEDS ORDERED: MAGNESIUM 2GM PREMIX 50ML 50 ML IV PRN (10:15)
[2019-02-24] MEDS: POTASSIUM CHLORIDE 10% ELIXIR 20 MEQ/15 ML UDCUP PO PRN (10:20)
[2019-02-24] MEDS: MAGNESIUM 2GM PREMIX 50ML 50 ML IV PRN (11:12)
[2019-02-24] MEDS: ACYCLOVIR 800 MG TABLET PO SCH ×4 (11:12→23:49)
[2019-02-24 12:00] VITALS: BP 141/94
[2019-02-24 16:00] VITALS: BP 157/84
--- NOTE | 2019-02-24 16:25 | NUR ---
Anand recd call from son Nura James [phone] to discuss dc options. Anand educated on SNF vs HH vs Hospice vs Private care homes. Son reports that pt has really fallen into a deep depression since the of her 6 months ago. Reports pt doesn't want to do anything, drinking and declining in ability to complete ADLS. Son has private duty care givers in home with pt, but is not sure if hoe is best option for pt. ANAND educated on MPOA and Surrogate Decision Maker Law, and directives. Son not sure if pt has in place and pt has never wanted to discuss wishes with her kids. Son states that pt is currently confused and not able to respond correctly. Pt also not really willing to do PT when seen. Son concerned that pt will not do PT if sent to SNF, and pt has refused SNF when she was alert and oriented. Encouraged son to try and talk to pt regarding directives and code status, and hospice and see how pt reacted to this option. Pt may be agreeable or not. Discussed going home with HH and if pt continues to decline, consider hospice at home.
--- NOTE | 2019-02-24 17:44 | NUR ---
Nutrition Intervention: Nutrition screen based on LOS x 8 days. Pt. admitted with Dx of Left breast abscess, metabolic acidosis. Pt. on Renal Non Dialysis diet. Pt. reports poor p.o. intake due to loss of appetite. Spoke with pt. regarding nutritional supplementation and pt. agreed to try. Labs reviewed(Alb 2.4, BG 187, HgbA1c 8.6%, BUN 26). LBM: 02/24/19. SR-15, left breast incision/right buttock shingles lesion. BMI: 31.6, overweight for age. Pt. refused Diabetic diet education. Recommendations: 1) Rec. 75gm CCD diet. 2) Rec. Chocolate Glucerna BID with B'fast and dinner meals. 3) Continue to monitor pt's nutritional status. 4) Consult RD as nutrition concerns arise. Addendum: 02/24/19 at [address] Amended: Links added.
[2019-02-24 19:00] VITALS: BP 157/85
[2019-02-24] MEDS ORDERED: ALPRAZOLAM 0.5 MG TABLET PO ONE (19:30)
[2019-02-24] MEDS ORDERED: ALPRAZOLAM 0.5 MG TABLET ONE (20:34)
[2019-02-24] MEDS: POTASSIUM CHLORIDE 20 MEQ ERTAB PO SCH (20:39)
[2019-02-24] MEDS: ATORVASTATIN CALCIUM 40 MG TABLET PO SCH (20:39)
--- NOTE | 2019-02-24 20:40 | NUR ---
MEDS SHIFT ASSESSMENT DONE, PLEASE REFER TO CHART. DUE MEDS ADMINISTERED, TOLERATED WELL. KEPT RESTED AND COMFORTABLE. CALL LIGHT WITHIN REACH. PRIVATE SITTER AT BEDSIDE. WILL MONITOR PT.
--- NOTE | 2019-02-24 21:15 | NUR ---
IS TRIED TO CYLINDER DYER PT TO DO IS BUT REFUSED AT THIS TIME. WILL TRY AGAIN IN AM.
[2019-02-25] VITALS (33 sets, daily range): BP systolic 93–178; BP diastolic 31–101
--- NOTE | 2019-02-25 02:00 | NUR ---
ROUNDS PT RESTING IN BED. NO DISTRESS NOTED. KEPT RESTED AND COMFORTABLE. CALL LIGHT WITHIN REACH. PRIVATE SITTER AT BEDSIDE.
[2019-02-25] MEDS: HYDRALAZINE HCL 20 MG/ML VIAL IV PRN (04:18)
--- NOTE | 2019-02-25 04:30 | NUR ---
O2 PT NOTED TO BE HAVING SHALLOW BREATHS. INSTRUCTED TO TAKE DEEP BREATHS BUT DOES NOT FOLLOW INSTRUCTIONS. TRIED TO FLEX O WRITER OPERATOR ON IS AGAIN BUT DOSE NOT FOLLOW. CHECKED O2 SAT=89%-90% ON 2LPM. INCREASED O2 AT 3LPM VIA NC. WILL MONITOR PT.
--- NOTE | 2019-02-25 05:20 | NUR ---
MEDS PT IS STILL AWAKE. ONLY SLEPT FOR SHORT INTERVALS. DUE MEDS ADMINISTERED, TOLERATED WELL. KEPT COMFORTABLE WITH HOB ELEVATED. FOR MORE CARE.
[2019-02-25] MEDS: ACYCLOVIR 800 MG TABLET PO SCH ×5 (05:23→23:00)
[2019-02-25 05:45] LABS: BASOPHILS % (AUTO) 0.6 % (0.0-5.0); EOSINOPHILS % (AUTO) 10.3 % (0.0-8.0); HEMATOCRIT 36.1 % (36-48); MEAN CORPUSCULAR HEMOGLOBIN 28.8 pg (27.0-33.0); MEAN CORPUSCULAR HGB CONC 32.9 g/dL (32.0-36.0); MEAN CORPUSCULAR VOLUME 87.6 fL (79-99); MONOCYTES % (AUTO) 9.8 % (3.0-13.0); NEUTROPHILS % (AUTO) 57.3 % (40.0-77.0); NUCLEATED RED BLOOD CELLS 0.1 % (0.0-0.19); PLATELET COUNT (AUTO) 121 K/uL (130-400); RED BLOOD CELL COUNT(AUTO) 4.13 MIL/uL (4.00-5.50); RED CELL DISTRIBUTION WIDTH 18.3 % (11.0-15.5); WHITE BLOOD COUNT (AUTO) 6.2 K/uL (4.8-10.8)
[2019-02-25 06:18] LABS: CREATININE 1.1 mg/dL (0.5-1.5); PHOSPHORUS 3.4 mg/dL (2.5-4.9); POTASSIUM 4.4 mmol/L (3.5-5.1)
[2019-02-25] MEDS: INSULIN HUMULIN R 100 UNIT/ML 3ML SQ SCH ×4 (06:22→21:00)
[2019-02-25] MEDS: IPRATROPIUM 0.5 MG/2.5 ML INH IH SCH ×4 (06:38→23:39)
--- NOTE | 2019-02-25 06:54 | NUR ---
RT RT IN TO GIVE BREATHING TREATMENT. RT INFORMS ROLL TRUCKER THAT PT IS NOT TAKING DEEP BREATHS AT THIS TIME, JUST SHALLOW BREATHS. O2 SAT IS STILL AT 90%. O2 INCREASED TO 5LPM AND O2 SATS INCREASED TO 94%.
--- NOTE | 2019-02-25 08:24 | NUR ---
Upon assessment patient in bed sleeping. Patient awaken by calling her name. IV flushing well to right arm and patent. caregiver at bedside. Addendum: 02/25/19 at 1929 by JEWELL NIELSON RN RN Pt able to follow simple commands.
[2019-02-25] MEDS: PANTOPRAZOLE SODIUM 40 MG TABLET.DR PO SCH (08:52)
[2019-02-25] MEDS: ASPIRIN 81MG TAB.CHEW PO SCH (08:52)
[2019-02-25] MEDS: FERROUS SULFATE 325 MG TABLET.DR PO SCH (08:53)
[2019-02-25] MEDS: FOLIC ACID 1 MG TABLET PO SCH (08:53)
[2019-02-25] MEDS: POTASSIUM CHLORIDE 20 MEQ ERTAB PO SCH ×2 (08:53→21:00)
[2019-02-25] MEDS: CHLORDIAZEPOXIDE HCL 25 MG CAP PO SCH (08:53)
[2019-02-25] MEDS: SODIUM BICARBONATE 650 MG TAB PO SCH ×2 (08:53→22:02)
[2019-02-25] MEDS: ENOXAPARIN SODIUM 30 MG/0.3 ML SQ SCH (08:54)
[2019-02-25] MEDS: AMLODIPINE BESYLATE 5 MG TAB PO SCH (08:54)
[2019-02-25] MEDS: METOPROLOL TARTRATE 25 MG TAB PO SCH ×2 (08:54→22:02)
--- NOTE | 2019-02-25 10:00 | NUR ---
DC PLANNING W SON/PT DC PLANNING TO SNF? MET PT, PROVIDER & SON AT BEDSIDE. PT PALE , PUFFY, AUDIBLE WHEEZING & PALE, MAKES EYE CONTACT, FLAT AFFECT, VOICE VERY SOFT, DIFFICULT TO UNDERSTAND. PATIENT ASKED AGAIN ABOUT REHAB/SNF; PT AGAIN REFUSED. APPEARED CONFUSED AND REPEATED HERSELF OVER AND OVER. PLAN FOR THORACENTESIS TODAY. PRIMARY RN GOT CONSENT FROM CONSENT 09/28/ TO PT BEING TOO CONFUSED TO GIVE INFORMED CONSENT. ASKED SON IF HOME W HOSPICE WAS AN OPTION, WAS TOLD THAT [facility] TOLD HIM THAT SHE DID NOT HAVE A HOSPICE DIAGNOSIS, BUT THAT HE CALLED [facility] AND WAS TOLD THEY WOULD ASSESS THE PATIENT IF ORDERED. Addendum: 02/26/19 at 0932 by MOHAMUD ALBRECHT RN Amended: Links added.
[2019-02-25] MEDS ORDERED: FUROSEMIDE 10 MG/ML 2ML VIAL IV SCH (10:30)
--- NOTE | 2019-02-25 10:30 | NUR ---
Susan Modi, JACKIE for [employer] rounding on patient. Notified patient tachypnea, O2 sat at 95% with 5LPM at this time. Generalized edema to extremities. Made Aware of left pleural effusion. Cg at bedside and updated on pt status. Will start patient on Furosemide at this time.
[2019-02-25] MEDS ORDERED: LIDOCAINE HCL 1% 20 ML VIAL INJ SCH (12:30)
--- NOTE | 2019-02-25 12:30 | NUR ---
Dr. Quiroz here for bedside thoracentesis to left lung. Consent signed by son due to patient confused.
--- NOTE | 2019-02-25 12:55 | NUR ---
Thoracentesis done by Dr. Quiroz. Pt tolerated well. 1.5L yellow fluid removed and taken to lab.
--- NOTE | 2019-02-25 14:01 | NUR ---
Dr. Abebe dietz. Notified patient given Xanax 0.5mg PO once last night and patient continues sleeping. DC Xanax
[2019-02-25] MEDS ORDERED: FUROSEMIDE 20 MG TABLET PO SCH (15:00)
--- NOTE | 2019-02-25 15:06 | NUR ---
Rounding on patient, patient difficult to arrouse. Arousable only to painful stimuli. Rapid response called. Dr. Cardenas, RT, Jose A Charge Nurse, attending. ABG's obtained, patient placed on BIPAP for respiratory distress. VS 154/66 62 95% respirations 24 with shallow breathing. IV started to right wrist 22 g by EDSON Naranjo. Susan Modi notified of ABG's. Recheck ABG's in 1 hour. Patient to transfer to ICU once Bed available. Will continue to monitor and assess. Addendum: 02/25/19 at 2031 by JEWELL NIELSON RN RN Susan Modi ordered for bipap settings 13/04 8 @ 40%
--- NOTE | 2019-02-25 15:09 | NUR ---
HOLD EVAL. ORDER RECEIVED. HOLD EVALUATION SECONDARY TO Pt SLEEPY AND DROWSY AT THIS TIME. Pt S/P THORACENTESIS. HANDER IN TO FOLLOW UP WITH Pt. Addendum: 02/25/19 at 1510 by CARLOS CHASE, SPT ST Amended: Links added.
[2019-02-25 15:11] LABS: ABG BASE EXCESS 4.2 mmol/L (-2.0-3.0); ABG HCO3 33.2 mmol/L (21.0-28.0); ABG OXYGEN SATURATION 98.7 % (95.0-99.0); ABG PCO2 73 mmHg (32-45)
--- NOTE | 2019-02-25 15:24 | NUR ---
Patient remains on Bipap. VS 165/101 57 20 Resp 89% O2 sat on 5LPM. Continue to monitor and assess
--- NOTE | 2019-02-25 15:39 | NUR ---
Patient remains on Bipap. VS 145/58 66 20 Resp 97% O2 sat on 5LPM. Continue to monitor and assess. Emergency contact son called for update on pt condition. Pt stated he was on his way up from elevator.
--- NOTE | 2019-02-25 15:54 | NUR ---
Patient remains on Bipap. VS 145/79 67 20 Resp 96% O2 sat on 5LPM. Continue to monitor and assess. 2 Son at bedside and informed a rapid response was called. Notified pending transfer to ICU for continued monitoring of respiratory system.
--- NOTE | 2019-02-25 16:00 | NUR ---
Patient transferred to ICU room 206 via bed and Bipap. Patient in no acute distress. Addendum: 02/25/19 at 2027 by JEWELL NIELSON RN RN ERROR wrong time
--- NOTE | 2019-02-25 16:09 | NUR ---
Patient remains on Bipap. VS 141/60 67 20 96% O2 sat on 5LPM. Continue to monitor and assess. 2 sons and a visitor remain at bedside with pt
[2019-02-25] MEDS ORDERED: NALOXONE HCL 0.4 MG/1 ML ML IVP SCH (16:15)
--- NOTE | 2019-02-25 16:24 | NUR ---
Patient transferred to ICU RM 206 accompanied by RT and Jose A, conveyor line battery charger nurse, remains on Bipap. VS 152/76 68 20 Resp 95% O2 sat. Continue to monitor and assess
[2019-02-25] MEDS: FUROSEMIDE 10 MG/ML 2ML VIAL IV SCH ×2 (18:15→21:40)
[2019-02-25 20:05] LABS: APPEARANCE BODY FLUID CLEAR (CLEAR); COLOR,BODY FLUID LT YELLOW (LT YELLOW); SPECIMENTYPE,BODY FLUID PLEURAL; TOTAL VOLUME,BODY FLUID 1580 mL
[2019-02-25 20:06] LABS: BODY FLUID RBC 300 /cu. mm.; BODY FLUID WBC 148 /cu. mm.
[2019-02-25 20:08] LABS: BF LYMPHOCYTE 68 %; BF MESOTHELIAL 10 %; BF MONOCYTE 4 %
--- NOTE | 2019-02-25 20:10 | NUR ---
TEMPERATURE PATIENT TEMPERATURE 94.3 AXILLARY. LAWANDA HUGGER APPLIED
[2019-02-25] MEDS: ATORVASTATIN CALCIUM 40 MG TABLET PO SCH (22:02)
--- NOTE | 2019-02-25 22:05 | NUR ---
MEDICATIONS PATIENT LETHARGIC ABLE TO SAY NAME AND FOLLOW COMMANDS, ABLE TO SWALLOW WATER. MEDICATIONS GIVEN PO, CRUSHED WITH APPLESAUCE
[2019-02-25] MEDS: POTASSIUM CHLORIDE 10% ELIXIR 20 MEQ/15 ML UDCUP PO PRN (22:12)
[2019-02-26] VITALS (25 sets, daily range): BP systolic 101–154; BP diastolic 42–79
[2019-02-26 03:46] LABS: BASOPHILS % (AUTO) 0.5 % (0.0-5.0); EOSINOPHILS % (AUTO) 5.6 % (0.0-8.0); HEMATOCRIT 36.9 % (36-48); LYMPHOCYTES % (AUTO) 17.2 % (21.0-51.0); MEAN CORPUSCULAR HEMOGLOBIN 28.3 pg (27.0-33.0); MEAN CORPUSCULAR HGB CONC 32.4 g/dL (32.0-36.0); MEAN CORPUSCULAR VOLUME 87.4 fL (79-99); MONOCYTES % (AUTO) 9.8 % (3.0-13.0); NEUTROPHILS % (AUTO) 66.9 % (40.0-77.0); NUCLEATED RED BLOOD CELLS 0.1 % (0.0-0.19); PLATELET COUNT (AUTO) 100 K/uL (130-400); RED BLOOD CELL COUNT(AUTO) 4.22 MIL/uL (4.00-5.50); RED CELL DISTRIBUTION WIDTH 17.8 % (11.0-15.5)
[2019-02-26 04:06] LABS: ALBUMIN 2.2 g/dL (3.5-5.0); BILIRUBIN,TOTAL 0.3 mg/dL (0.2-1.0); CREATININE 1.1 mg/dL (0.5-1.5); MAGNESIUM 1.7 mg/dL (1.80-2.40); PHOSPHORUS 3.5 mg/dL (2.5-4.9); POTASSIUM 4.6 mmol/L (3.5-5.1); TOTAL PROTEIN, SERUM 5.5 g/dL (6.0-8.3)
[2019-02-26] MEDS: MAGNESIUM 2GM PREMIX 50ML 50 ML IV PRN (04:20)
[2019-02-26 04:59] LABS: ABG BASE EXCESS 10.4 mmol/L (-2.0-3.0); ABG HCO3 36.4 mmol/L (21.0-28.0); ABG PCO2 53 mmHg (32-45)
[2019-02-26] MEDS: INSULIN HUMULIN R 100 UNIT/ML 3ML SQ SCH ×4 (06:38→20:47)
[2019-02-26] MEDS: ACYCLOVIR 800 MG TABLET PO SCH ×5 (06:38→23:03)
[2019-02-26] MEDS: IPRATROPIUM 0.5 MG/2.5 ML INH IH SCH ×3 (06:51→18:42)
--- NOTE | 2019-02-26 08:00 | NUR ---
HOLD EVAL. Pt ON CONTINUOUS BIPAP AT THIS TIME. HOLD EVALUATION SECONDARY TO POOR RESPIRATORY STATUS. FILTER PRESS PUMPER WILL CONTINUE TO FOLLOW Pt. FILTER PRESS PUMPER COORDINATED CARE WITH NURSE MIRTA. Addendum: 02/26/19 at 1406 by CARLOS CHASE, LUIS ST Amended: Links added.
[2019-02-26] MEDS: ASPIRIN 81MG TAB.CHEW PO SCH (08:26)
[2019-02-26] MEDS: FERROUS SULFATE 325 MG TABLET.DR PO SCH (08:26)
[2019-02-26] MEDS: POTASSIUM CHLORIDE 20 MEQ ERTAB PO SCH ×2 (08:27→20:47)
[2019-02-26] MEDS: FOLIC ACID 1 MG TABLET PO SCH (08:27)
[2019-02-26] MEDS: ENOXAPARIN SODIUM 30 MG/0.3 ML SQ SCH (08:27)
[2019-02-26] MEDS: MULTIVITAMIN TABLET PO SCH (08:28)
[2019-02-26] MEDS: AMLODIPINE BESYLATE 5 MG TAB PO SCH (08:28)
[2019-02-26] MEDS: THIAMINE HCL 100 MG TABLET PO SCH (08:28)
[2019-02-26] MEDS: METOPROLOL TARTRATE 25 MG TAB PO SCH ×2 (08:28→20:46)
[2019-02-26] MEDS: FUROSEMIDE 10 MG/ML 2ML VIAL IV SCH ×2 (08:29→16:51)
[2019-02-26] MEDS: PANTOPRAZOLE SODIUM 40 MG TABLET.DR PO SCH (09:00)
[2019-02-26] MEDS ORDERED: METOLAZONE 2.5 MG TABLET PO SCH (12:00)
[2019-02-26 12:38] LABS: MAGNESIUM 2.1 mg/dL (1.80-2.40); POTASSIUM 4.8 mmol/L (3.5-5.1)
--- NOTE | 2019-02-26 15:00 | NUR ---
CT SCAN CANCELLED WHEN PREPARING PATIENT TO GO DOWN TO CT SCAN, AND CHANGING FROM BIPAP TO NRB MASK, PATIENT OPENED EYES AND BEGAN TALKING APPROPRIATELY. PATIENT WAS ABLE TO HOLD CONVERSATION, AND ANSWER ORIENTATION QUESTIONS CORRECTLY INCLUDING PERSON, PLACE, AND TIME. RE-ORIENTED PATIENT TO SITUATION SINCE SHE HAD BEEN SOMNOLENT SINCE PRIOR DAY S/P LEFT THORACENTESIS.
[2019-02-26] MEDS: ATORVASTATIN CALCIUM 40 MG TABLET PO SCH (20:46)
[2019-02-27] VITALS (15 sets, daily range): BP systolic 110–157; BP diastolic 46–100
[2019-02-27] MEDS: FUROSEMIDE 10 MG/ML 2ML VIAL IV SCH ×3 (00:02→16:16)
[2019-02-27] MEDS: IPRATROPIUM 0.5 MG/2.5 ML INH IH SCH ×4 (00:44→18:34)
[2019-02-27 03:48] LABS: BASOPHILS % (AUTO) 0.6 % (0.0-5.0); EOSINOPHILS % (AUTO) 5.6 % (0.0-8.0); HEMATOCRIT 35.3 % (36-48); LYMPHOCYTES % (AUTO) 26.7 % (21.0-51.0); MEAN CORPUSCULAR HEMOGLOBIN 27.6 pg (27.0-33.0); MEAN CORPUSCULAR HGB CONC 32.5 g/dL (32.0-36.0); NEUTROPHILS % (AUTO) 56.1 % (40.0-77.0); NUCLEATED RED BLOOD CELLS 0.1 % (0.0-0.19); PLATELET COUNT (AUTO) 123 K/uL (130-400); RED BLOOD CELL COUNT(AUTO) 4.16 MIL/uL (4.00-5.50); RED CELL DISTRIBUTION WIDTH 17.7 % (11.0-15.5)
[2019-02-27 04:05] LABS: CREATININE 1.4 mg/dL (0.5-1.5); POTASSIUM 4.4 mmol/L (3.5-5.1)
[2019-02-27] MEDS: ACYCLOVIR 800 MG TABLET PO SCH ×5 (06:10→23:11)
[2019-02-27] MEDS: INSULIN HUMULIN R 100 UNIT/ML 3ML SQ SCH ×4 (06:13→20:57)
[2019-02-27] MEDS: ENOXAPARIN SODIUM 30 MG/0.3 ML SQ SCH (08:11)
[2019-02-27] MEDS: MULTIVITAMIN TABLET PO SCH (08:13)
[2019-02-27] MEDS: POTASSIUM CHLORIDE 20 MEQ ERTAB PO SCH ×2 (08:13→20:11)
[2019-02-27] MEDS: PANTOPRAZOLE SODIUM 40 MG TABLET.DR PO SCH (08:13)
[2019-02-27] MEDS: ASPIRIN 81MG TAB.CHEW PO SCH (08:13)
[2019-02-27] MEDS: THIAMINE HCL 100 MG TABLET PO SCH (08:13)
[2019-02-27] MEDS: FERROUS SULFATE 325 MG TABLET.DR PO SCH (08:13)
[2019-02-27] MEDS: AMLODIPINE BESYLATE 5 MG TAB PO SCH (08:13)
[2019-02-27] MEDS: METOPROLOL TARTRATE 25 MG TAB PO SCH ×2 (08:13→20:11)
[2019-02-27] MEDS: FOLIC ACID 1 MG TABLET PO SCH (08:14)
--- NOTE | 2019-02-27 08:30 | NUR ---
BEDSIDE SWALLOW STUDY PERFORMED, NO SIGNS OF ASPIRATION NOTED WITH CLEAR LIQUIDS, AAOX2, TO PERSON AND PLACE, REORIENTED TO TIME, PER DR LO, DISCONTINUED NGT TO LEFT NARE AND WILL START CLEAR LIQUID DIET, WILL CONTINUE TO MONITOR.
--- NOTE | 2019-02-27 12:30 | NUR ---
REPORT GIVEN TO SANDRA GEE RN, TRANSFERRED VIA BED TO ROOM 215
[2019-02-27] MEDS: ACETAMINOPHEN 325 MG TAB PO PRN ×2 (16:35→22:30)
[2019-02-27] MEDS: ATORVASTATIN CALCIUM 40 MG TABLET PO SCH (20:11)
[2019-02-28] MEDS: IPRATROPIUM 0.5 MG/2.5 ML INH IH SCH ×3 (00:59→11:00)
[2019-02-28] MEDS: FUROSEMIDE 10 MG/ML 2ML VIAL IV SCH ×3 (01:20→15:26)
[2019-02-28 03:50] VITALS: BP 128/72
[2019-02-28 04:39] LABS: HEMATOCRIT 30.9 % (36-48); MEAN CORPUSCULAR HEMOGLOBIN 28.6 pg (27.0-33.0); MEAN CORPUSCULAR HGB CONC 33.5 g/dL (32.0-36.0); MEAN CORPUSCULAR VOLUME 85.6 fL (79-99); NUCLEATED RED BLOOD CELLS 0.1 % (0.0-0.19); PLATELET COUNT (AUTO) 108 K/uL (130-400); RED BLOOD CELL COUNT(AUTO) 3.61 MIL/uL (4.00-5.50); RED CELL DISTRIBUTION WIDTH 17.3 % (11.0-15.5); WHITE BLOOD COUNT (AUTO) 6.7 K/uL (4.8-10.8)
[2019-02-28 04:47] LABS: CREATININE 1.3 mg/dL (0.5-1.5); POTASSIUM 4.2 mmol/L (3.5-5.1)
[2019-02-28] MEDS: ACYCLOVIR 800 MG TABLET PO SCH ×3 (06:05→15:26)
[2019-02-28] MEDS: INSULIN HUMULIN R 100 UNIT/ML 3ML SQ SCH ×3 (06:30→16:26)
[2019-02-28 07:00] VITALS: BP 152/76
[2019-02-28] MEDS: MULTIVITAMIN TABLET PO SCH (09:52)
[2019-02-28] MEDS: AMLODIPINE BESYLATE 5 MG TAB PO SCH (09:52)
[2019-02-28] MEDS: FERROUS SULFATE 325 MG TABLET.DR PO SCH (09:52)
[2019-02-28] MEDS: ASPIRIN 81MG TAB.CHEW PO SCH (09:52)
[2019-02-28] MEDS: THIAMINE HCL 100 MG TABLET PO SCH (09:52)
[2019-02-28] MEDS: FOLIC ACID 1 MG TABLET PO SCH (09:52)
[2019-02-28] MEDS: PANTOPRAZOLE SODIUM 40 MG TABLET.DR PO SCH (09:53)
[2019-02-28] MEDS: POTASSIUM CHLORIDE 20 MEQ ERTAB PO SCH (09:53)
[2019-02-28] MEDS: METOPROLOL TARTRATE 25 MG TAB PO SCH (09:53)
[2019-02-28] MEDS: ENOXAPARIN SODIUM 30 MG/0.3 ML SQ SCH (09:54)
--- NOTE | 2019-02-28 10:10 | NUR ---
DYSPHAGIA EVAL COMPLETE. -S/S OF ASPIRATION. RECOMMEND REGULAR, THIN LIQUID DIET; PILLS WHOLE WITH LIQUIDS. PATIENT INFORMATION: Pt IS A 73 Y.O. FEMALE REFERRED FOR A BEDSIDE DYSPHAGIA EVALUATION SECONDARY TO COUGHING WITH THIN LIQUIDS PRIOR TO ICU TRANSFER. Pt AAOX3 AND COOPERATIVE DURING THE EVALUATION. Pt WITH RAPID RESPONSE 3 DAYS AGO WITH S/P ICU TRANSFER. Pt WAS PREVIOUSLY ON BIPAP. Pt CURRENTLY WITH IMPROVED RESPIRATORY STATUS. Pt ADMITTED SECONDARY TO UTI, HYPOXEMIA, SINUS BRADYCARDIA, UTI, AND BREAST ABSCESS. Pt S/P THORACENTESIS 3 DAYS AGO. Pt HAS A PAST MEDICAL HISTORY SIGNIFICANT FOR RENAL FAILURE, ANASCARA, CAD, CABG, HYPERTENSION, DM, HYPERCHOLESTEROLEMIA. EVALUATION: SWALLOW FUNCTION AND EFFICIENCY WITHIN FUNCTIONAL LIMITS. ORAL MOTOR STRENGTH, COORDINATION, AND ROM WITHIN FUNCTIONAL LIMITS. LARYNGEAL ELEVATION/EXCURSION STRONG WITH TIMELY PHARYNGEAL RESPONSE. NO OVERT SIGNS OR SYMPTOMS OF ASPIRATION PRESENT AT BEDSIDE. VOCAL QUALITY CLEAR WITH NO THROAT CLEAR OR COUGH RESPONSE PRESENT. RECOMMENDATIONS: 1. REGULAR TEXTURE, THIN LIQUID DIET; PILLS WHOLE WITH LIQUIDS. 2. COMPENSATORY STRATEGIES (PROPHYLAXIS): *SEATED AT 90 DEGREE ANGLE *SMALL BITES AND SIPS *SLOW RATE G-CODES SWALLOWING: [id number] Addendum: 02/28/19 at 1015 by LUIS VANCE Amended: Links added.
[2019-02-28 11:00] VITALS: BP 124/70
--- NOTE | 2019-02-28 12:31 | NUR ---
DC PLAN VISITED WITH PATIENT. REFUSES [facility] OR ANY OTHER FACILITY. SPOKE TO SON SAID PATIENT IS WITH IT AND CAN MAKE DECISIONS. EXPLAINED DIFFERENT OPTIONS. HOSPICE WAS BROUGHT UP LET NURSE KNOW TO SEE IF PRIMARY IS IN AGREEMENT PRIOR TO SPEAKING TO PATIENT REGARDING HOSPICE. Addendum: 02/28/19 at 1233 by ASTRID CORNEJO RN CM Amended: Links added.
--- NOTE | 2019-02-28 13:10 | NUR ---
[facility] Anand contacted by , pt is agreeable to dc home with [facility], pt will need O2 for home.. Sw to make referral ANAND contacted [facility] and made referral. Pt info faxed to [facility] office. Waiting for Acceptance
[2019-02-28] MEDS: ACETAMINOPHEN 325 MG TAB PO PRN (13:29)
[2019-02-28 16:00] VITALS: BP 138/61
--- NOTE | 2019-02-28 16:11 | NUR ---
dr ellis rashid's office called and attempt made to notify her of patient leaving home with hospice; Dr. Zaragoza is on vacation at this time and no one is recreation superintendent
--- NOTE | 2019-02-28 16:22 | NUR ---
dr hinton' office called and attempt made to notify him of patient leaving home with hospice; Dr. Hinton is on vacation at this time
--- NOTE | 2019-02-28 18:22 | NUR ---
discharge papers and instructions given to ms. castillo and caregiver at bedside; patient to be going home via EMS and admitted under [facility]; Beatriz Ham, nurse at [facility], given report at 1720. Patient's son also made aware. Patient awaiting EMS
--- NOTE | 2019-02-28 19:00 | NUR ---
piv and telepack removed; patient discharged via EMS
== END 2019-02-28 19:00 | disposition hospice, home (50) | DRG 871 ==
LOC: EDH 16:37 → EDHIP 19:53 → 2DH 22:05 → UNDODISIN 23:16 → 2CH 02-18 12:01 → 2BH 02-19 21:52 → 3AH 02-21 16:16 → 2BH 02-25 16:46 → 2CH 02-27 12:29 → 2DH 02-27 19:33
PROVIDERS: ADMIT Hospitalist; ATTEND Hospitalist
PROC: 5A1935Z Respiratory Ventilation, Less than 24 Consecutive Hours (ICD-10-PCS; 2019-02-18)
PROC: 0BH17EZ Insertion of Endotracheal Airway into Trachea, Via Natural or Artificial Opening (ICD-10-PCS; 2019-02-18)
PROC: 0H9U3ZX Drainage of Left Breast, Percutaneous Approach, Diagnostic (ICD-10-PCS; principal; 2019-02-18 11:30)
PROC: 0W9B3ZZ Drainage of Left Pleural Cavity, Percutaneous Approach (ICD-10-PCS; 2019-02-25)
PROC: 5A09357 Assistance with Respiratory Ventilation, Less than 24 Consecutive Hours, Continuous Positive Airway Pressure (ICD-10-PCS; 2019-02-25)
PROC: 5A09357 Assistance with Respiratory Ventilation, Less than 24 Consecutive Hours, Continuous Positive Airway Pressure (ICD-10-PCS; 2019-02-27)
DX: A41.9 Sepsis, unspecified organism (principal); J96.01 Acute respiratory failure with hypoxia; J96.02 Acute respiratory failure with hypercapnia; G93.41 Metabolic encephalopathy; N17.0 Acute kidney failure with tubular necrosis; E87.2 Acidosis; N39.0 Urinary tract infection, site not specified; J90 Pleural effusion, not elsewhere classified; E44.1 Mild protein-calorie malnutrition; I13.0 Hypertensive heart and chronic kidney disease with heart failure and stage 1 through stage 4 chronic kidney disease, or unspecified chronic kidney disease; N61.1 Abscess of the breast and nipple; B02.9 Zoster without complications; D64.9 Anemia, unspecified; E11.22 Type 2 diabetes mellitus with diabetic chronic kidney disease; Z68.30 Body mass index [BMI] 30.0-30.9, adult; E66.9 Obesity, unspecified; E78.00 Pure hypercholesterolemia, unspecified; E78.5 Hyperlipidemia, unspecified; E83.42 Hypomagnesemia; E87.6 Hypokalemia; F03.90 Unspecified dementia, unspecified severity, without behavioral disturbance, psychotic disturbance, mood disturbance, and anxiety; F41.1 Generalized anxiety disorder; Z51.5 Encounter for palliative care; N61.0 Mastitis without abscess; I25.10 Atherosclerotic heart disease of native coronary artery without angina pectoris; I50.9 Heart failure, unspecified; N18.3 Chronic kidney disease, stage 3 (moderate); N60.02 Solitary cyst of left breast; R65.20 Severe sepsis without septic shock; I25.2 Old myocardial infarction; Z79.82 Long term (current) use of aspirin; Z79.891 Long term (current) use of opiate analgesic; Z79.899 Other long term (current) drug therapy; Z90.49 Acquired absence of other specified parts of digestive tract; Z95.1 Presence of aortocoronary bypass graft; Z83.3 Family history of diabetes mellitus; Z82.49 Family history of ischemic heart disease and other diseases of the circulatory system
CPT/HCPCS: 32554; 36415; 36600; 70450; 71045; 74018; 76641; 76770; 80048; 80053; 81001; 82040; 82140; 82435; 82550; 82803; 82945; 82947; 82948; 83036; 83605; 83615; 83735; 83874; 83880; 83986; 84100; 84132; 84157; 84295; 84484; 85018; 85025; 85027; 85610; 85730; 87040; 87070; 87071; 87076; 87088; 87116; 87205; 87206; 88108; 88305; 89051; 92610; 93005; 93306; 94002; 94003; 94640; 94660; 94664; 97039; 99291; A4344; A4351; G0378; G0481; J0330; J0360; J1650; J1815; J1940; J2001; J2250; J2543; J2704; J3370; J3475; J3480; J3490; J7030; J7040; J7070